=== PATIENT | male | born 1970 ===

== ENCOUNTER 2022-12-10 22:47 | Day surgery (SDC) | payer OTHER, SELFPAY ==
--- NOTE | 2022-12-10 | XR_ITS ---
Patient: HERMELINDO SU Facility:?[facility] Patient ID:?[id number] Site Patient ID:[id number]. Site :?[id number] Study:?XRay-Extremity Right TIB/FIB 2V-12/10/2022 11:26:27 PM Ordering Physician:?UNKNOWN UNKNOWN Final Report: Indication: Fall. Technique: Two views right tibia-fibula. Comparison: Ankle same day. Findings/Impression: Redemonstration of acute complete comminuted fractures of the distal 3rd of the tibia and fibula with lateral angulation, posterior displacement and 30 millimeters retraction of the distal fracture fragments. Associated soft tissue swelling. The medial tibial plateau is depressed, likely secondary to a tibial plateau impaction fracture. Dictated by Munir Sales MD @ 12/10/2022 11:48:00 PM Signed by:?Munir Sales MD @12/10/2022 11:48:00 PM (Electronic Signature)
[2022-12-10 22:52] VITALS: PULSE 71
--- NOTE | 2022-12-10 23:04 | CRLHL7_ITS ---
For Patients: As a result of the Cures Act, medical imaging exams and procedure reports are released immediately into your electronic medical record. You may view this report before your referring provider. If you have questions, please contact your health care provider. Indication: Right ankle pain. Technique: Right ankle 3 views. Comparison: None. FINDINGS/IMPRESSION: Acute complete comminuted fractures of the distal 3rd of the tibia and fibula with lateral angulation of the distal fracture fragments as well as posterior displacement and approximately 30 millimeters retraction of both tibia and fibula distal fracture fragments. Fracture line of the fibula may extend to the fibulotalar joint space. Associated soft tissue swelling. Joint spaces are otherwise maintained. Bony mineralization is age appropriate. Dictated by Munir Sales MD @ 12/10/2022 11:45:28 PM (Electronically Signed)
[2022-12-10 23:06] VITALS: BP 131/71; PULSE 71; RESP 16; TEMP 36.4; O2SAT 100
[2022-12-10] MEDS: fentaNYL 100 MCG/2 ML inj 50 MCG IVP (23:20)
[2022-12-10] MEDS: ONDANSETRON 2 MG/ML inj 4 MG IVP (23:20)
[2022-12-10] MEDS: 0.9 % SODIUM CHLORIDE 1000 ml 1,000 ML IV (23:20)
[2022-12-10 23:30] VITALS: BP 131/71; PULSE 84; RESP 16; O2SAT 100
[2022-12-10] MEDS: MIDAZOLAM HCL 1 MG/ML inj 2 MG IVP (23:30)
[2022-12-11] VITALS (29 sets, daily range): BP systolic 111–147; BP diastolic 72–98; PULSE 54–87; RESP 12–18; TEMP 36.2–36.9; O2SAT 92–100; BMI 25.8
--- NOTE | 2022-12-11 00:08 | ED.LOWEXIN ---
HPI - Extremity Injury (Lower) General Date Seen: 12/10/22 Chief Complaint: Extremity Pain/Injury, Lower Stated Complaint: Broken Right Ankle (skiing) Time Seen by Provider: 12/10/22 22:53 Source: patient and family Mode of arrival: wheelchair Limitations: no limitations History of Present Illness HPI Narrative: Patient is a 52-year-old gentleman who was skiing on bike ill, in twisted and was unable to bear weight on his right leg, just above his ski boot, he thinks he fractured his ankle, he went initially to [facility], but a 6 hour wait in the waiting room, propelled him to come to [facility] for further care. No other history of any other injury, he is on no medications, no allergies, last ate approximately 4 hours ago. He did tell me had a couple beers. Is otherwise healthy, MD complaint: leg injury and ankle injury Onset (ago): hour(s) Injury: Right: ankle Type of Injury: inversion Place: street/outdoors Severity: severe Relieving factors: nothing Exacerbating factors: movement Context: other ( skiing) Associated symptoms: snap/pop sensation and unable to bear weight Other symptoms: none Treatments prior to arrival: splint Related Data Home Medications Medication Instructions Recorded Confirmed No Known Home Medications 12/10/22 12/10/22 Allergies Allergy/AdvReac Type Severity Reaction Status Date / Time No Known Drug Allergies Allergy Verified 12/10/22 23:20 Review of Systems Status of ROS: Reports: 10 or more systems reviewed and unremarkable except as noted in History and below Exam Narrative: Exam Narrative: he has seen and stabilization room 1, he is in no apparent distress, denies any neck or other injury. His pupils are equal round reactive to light, TMs are normal, oropharynx is normal, normal mouth opening, neck extension flexion are all normal, chest is clear heart sounds are normal, no clicks murmurs or gallops, no signs respiratory distress, abdomen is soft, pelvis is stable, no tenderness is noted over his back on his lumbar thoracic or cervical spine. His right leg shows an obvious fracture approximately 6-8 inches above the right ankle, with the free movement, I suspect that is the tib-fib fracture. With the little bit of angulation, DP and posterior tibial pulses normal, he is able to move his toes, there is no sensation loss, there is no open component. Just below his right knee, there is a little bit of an abrasion that he tells me he got from [place] a few days ago. Const: Vital Signs, click to edit/add: Vital Signs - 24 hr 12/10/22 23:06 12/10/22 23:30 Temperature 97.6 F Pulse Rate [Left P ulse Oximeter] 71 Respiratory Rate 16 Blood Pressure [Ri ght Upper Arm] 131/71 Pulse Oximetry 100 100 Oxygen Delivery Me thod Room Air Nasal Cannula Oxygen Flow Rate 2 Documenting provider has reviewed patient's vital signs: yes Course Course Hospital Course: Care was taken to explained to both the patient and his , the tib-fib fracture, I recommend closed reduction, with the procedural sedation, this was done, he was splinted with a posterior splint to his thigh, through to his mid metatarsals. And also use splint around his ankle. Post reduction films show improvement of the previous angulation, and displacement. Post reduction he had normal neurovascular status please see notes. Consultation was done with orthopedic PA, Carla she recommended hospitalization, hospitalist consult, and they would be able to fix this tomorrow With a curry, and plate. Vital Signs Vital signs: Initial Vital Signs Temperature 97.6 F 12/10/22 23:06 Temperature Source Temporal Artery Scan 12/10/22 23:06 Pulse Rate 71 12/10/22 23:06 Respiratory Rate 16 12/10/22 23:06 Blood Pressure 131/71 12/10/22 23:06 Blood Pressure Mean 91 12/10/22 23:06 Blood Pressure Position Supine 12/10/22 23:06 Pulse Oximetry 100 12/10/22 23:06 Oxygen Delivery Method 12/10/22 23:06 Vital Signs Temperature 97.6 F 12/10/22 23:06 Pulse Rate 71 12/10/22 23:06 Respiratory Rate 16 12/10/22 23:06 Blood Pressure 131/71 12/10/22 23:06 Pulse Oximetry 100 12/10/22 23:06 Oxygen Delivery Method 12/10/22 23:06 Temperature 97.6 F 12/10/22 23:06 Pulse Rate 71 12/10/22 23:06 Respiratory Rate 16 12/10/22 23:06 Blood Pressure 131/71 12/10/22 23:06 Pulse Oximetry 100 12/10/22 23:30 Oxygen Delivery Method 12/10/22 23:30 Oxygen Flow Rate 2 12/10/22 23:30 MDM - Extremity Injury (Lower) MDM Narrative Medical decision making narrative: during this evaluation I considered multiple diagnosis including fracture dislocation of the ankle, tib-fib fracture both open and close, ankle injury, Medical Records Attestation: I reviewed the patient's medical records. Lab Data Attestation: I reviewed the patient's lab results. Imaging Data tib-fib : Attestation: I have reviewed the pertinent imaging results. My impression: tib-fib fracture with angulation. Discharge Plan Discharge Clinical Impression: Closed fracture of tibia and fibula Patient Disposition: Admitted As Inpatient Condition: Improved Prescriptions: No Action No Known Home Medications Follow Up/Referrals: Provider,Not a Local [Primary Care Provider] - Procedures Orthopedic Fracture Reduction Fracture #1: Written consent by: patient and health care proxy ( ) Time Out Performed: Yes Side: right Fracture location: tibia Analgesia: procedural sedation Technique: direct manipulation Post Reduction X-rays Demonstrate: acceptable reduction Post-reduction neuro exam: intact Post-reduction vascular exam: intact Splint Applied: Yes Patient Tolerated Procedure: well and no complications Additional Comments: anesthesia was done by LEIGH Purcell
--- NOTE | 2022-12-11 00:14 | CRLHL7_ITS ---
For Patients: As a result of the Cures Act, medical imaging exams and procedure reports are released immediately into your electronic medical record. You may view this report before your referring provider. If you have questions, please contact your health care provider. INDICATION: Status post closed reduction and casting. COMPARISON: Pre reduction films from earlier this evening at 2315 hours TECHNIQUE: AP and lateral views of the right tibia and fibula were obtained using portable technique at 2359 hours. FINDINGS: During the interval, a fiberglass cast has been placed. There is stable appearance of the comminuted, oblique fractures of the distal tibial and fibular shafts. There is stable 15 degrees lateral angulation of the major distal tibial fracture fragment. The previously seen 70 percent posterior displacement and 15 degrees anterior angulation of the major distal fracture fragment is no longer present. There is stable appearance of 100 presents to lateral displacement of the distal fibular fracture fragments, with decrease in lateral angulation of the distal fracture fragment from approximately 15 degrees to less than 5 degrees. There is no sign of any additional fracture elsewhere in the tibia or fibula. The ankle and knee are intact. The soft tissues are normal in appearance without sign of radio-opaque foreign body. IMPRESSION: Slight improvement in alignment of acute, comminuted, oblique fractures of the distal tibial and fibular shafts as described above after closed reduction and casting. Dictated by Cleveland Beck MD @ 12/11/2022 12:50:04 AM (Electronically Signed)
--- NOTE | 2022-12-11 00:19 | W.ANESCHARGE ---
Anesthesia Charges Start Date/Time Anesthesia Start Date: 12/10/22 Anesthesia Start Time: 23:50 Stop Date/Time Anesthesia Stop Date: 12/11/22 Anesthesia Stop Time: 00:06 Summary Emergency: Yes
--- NOTE | 2022-12-11 00:21 | ED.NURSE ---
conscious sedation with anesthesia at bedside with MD desai for splinting. split applied, pt awakens stating pain 1.5/10.
[2022-12-11 00:23] LABS: PCR FLU A Negative PCR FLU A (Negative); PCR FLU B Negative PCR FLU B (Negative)
[2022-12-11 00:25] LABS: SARS PCR* Negative SARS-CoV-2 (Negative)
--- NOTE | 2022-12-11 01:45 | PM.IMCN1 ---
Date of Consult Consult date: 12/11/22 Primary Care Provider: Not a Local Provider Consult Narrative Narrative: Flash Meyer is a 52 year old male [facility] Social History Highest level of school completed/degree received: high school graduate Smoking Status: Never smoker Do you use any of these nicotine containing products: None How often do you have a drink containing alcohol: 2-3 times a week Alcohol type: beer AUDIT-C Alcohol total score: 3 Non-prescribed substance use: denies use Caffeine: Yes service: No Meds Home Medications and Allergies Home Medications Medication Instructions Recorded Confirmed Type No Known Home Medications 12/10/22 12/10/22 History Allergies Allergy/AdvReac Type Severity Reaction Status Date / Time No Known Drug Allergies Allergy Verified 12/10/22 23:20 Exam Const: Vital Signs, click to edit/add: Vital Signs - 24 hr 12/10/22 23:06 12/10/22 23:30 12/10/22 22:52 Temperature 97.6 F Pulse Rate [Left P ulse Oximeter] 71 Pulse Rate [Right Dorsalis Pedis] 71 Respiratory Rate 16 Blood Pressure [Ri ght Upper Arm] 131/71 Pulse Oximetry 100 100 Oxygen Delivery Me thod Room Air Nasal Cannula Oxygen Flow Rate 2 12/10/22 23:30 12/11/22 00:00 Temperature Pulse Rate [Left P ulse Oximeter] 84 71 Pulse Rate [Right Dorsalis Pedis] Respiratory Rate 16 16 Blood Pressure [Ri ght Upper Arm] 131/71 125/92 H Pulse Oximetry 100 100 Oxygen Delivery Me thod Nasal Cannula Nasal Cannula Oxygen Flow Rate 2 2 Assessment and Plan Assessment and plan (1) Closed fracture of tibia and fibula: Status: Acute Plan [facility] Hospitalist CONSULTATION NOTE: Reason for consult: Right tibia and fibula fracture HPI: Patient is a pleasant and healthy 52-year-old gentleman who was skiing and suffered a wreck where he twisted his ankle in her on his boot. He was unable to bear weight on his ankle and so presented to [place] ED after first ER he presented to had a 6-hour wait. In the ER he had radiographs showing displaced right tibia and fibula fracture. ED provider spoke with orthopedic surgery who plans to for surgical repair in the morning. The fracture was reduced and splinted in the ER. Currently patient is rates his pain as a 4 out of 10. He denies any other symptoms. He has not had recent headache or lightheadedness. He is not having chest pain or shortness of breath. He does not have any abdominal pain, nausea, vomiting. He has not had any recent diarrhea. He does not have any fevers or chills for the last 2 days. Patient has had surgery before without any issues with anesthesia. He is healthy and takes no daily medications. He does not smoke cigarettes. He does drink alcohol around 6 beverages a week. He does not use any recreational drugs. We discussed CODE STATUS and he wishes to be full code. Exam (performed via interactive video with assistance of bedside nurse): General: Alert, cooperative, no acute distress HEENT: Pupils reported ERRL, oral mucosa pink and moist without erythema Lungs: Clear to auscultation bilaterally without crackle or wheeze CV: Regular rate and rhythm without loud murmur rub or gallop Abd: Denies tenderness and does not exhibit signs of pain with palpation done by bedside nurse Ext: Right leg is splinted. No pitting edema noted Skin: No rashes, bruises or lesions appreciated on gross visualization of exposed skin Past medical, surgical and social history reviewd in EMR. Assessment and Plan: 1. Right tibia and fibula fracture Patient is a pleasant 52-year-old male admitted for right tibia and fibula fracture following skiing accident. He will proceed to the OR later on this morning for surgical repair with orthopedics. We will keep him n.p.o. until surgery. He will PRNs available for pain and nausea. He does not have any chronic home medications to continue. We will defer any DVT prophylaxis to surgical service. Patient is a full code. Thank you for including Carrington Campbell in the patients care. This service is available for further assistance as requested by your care team by calling [phone].
[2022-12-11] MEDS: MORPHINE 4 MG/ML INJ IVP ×2 (03:28→06:26)
--- NOTE | 2022-12-11 07:32 | PC.NURSE ---
[id number] Pt admitted around 0115 from ER into 282 with right tibia/fibula fracture from falling while skiing. Alert and oriented. Pleasant and cooperative. PRN IV morphine given for right leg pain x2. VSS on room air. Splint and CMS intact to RLE. Remained in bed overnight. NPO for surgery today. ?
[2022-12-11] MEDS: LACTATED RINGERS 1000 ML 500 ML IV (08:42)
--- NOTE | 2022-12-11 09:01 | PM.IMHP1 ---
Hospitalist- H&P: JALIL History of Present Illness Date Seen: 12/11/22 Chief complaint: Broken Ankle (skiing) Narrative: Flash Meyer is a 52 year old male admitted to the hospital with a right tib-fib fracture. He was downhill skiing when he fell and sustained a fracture of both fibula and tibia just above the boot on his right leg. He is admitted to the hospital for surgery and pain control. He reports no other injuries. Reports that he has recently been well. 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 He was found to have an elevated PSA of 6.6. He underwent an MRI which showed a 6 mm nodule in his prostate. Today he was scheduled for a prostate biopsy. Also part of his evaluation at [place] he had a coronary calcium screening with a coronary calcium score of 0. He has hyperlipidemia but he is deemed to be very low risk for heart disease and therefore not on treatment for it. He had some difficulty with pain control during the night but otherwise reports he has been doing well. There is no personal or family history of problems with anesthesia, bleeding or clotting problems Review of Systems Narrative: He reports no other recent illness and no other injuries from his fall. [facility] Medical History (Updated 12/11/22 @ 09:06 by Jaquan Ochoa MD) Elevated PSA History of deviated nasal septum Hyperlipidemia Family History (Updated 12/11/22 @ 09:07 by Jaquan Ochoa MD) Brother Diabetes Father Diabetes Prostate cancer Melanoma Social History (Updated 12/11/22 @ 09:09 by Jaquan Ochoa MD) Narrative: He lives in [facility] with his and 2 sons. 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 He drinks 1-2 drinks daily. Does not smoke. Highest level of school completed/degree received: high school graduate Smoking Status: Never smoker Do you use any of these nicotine containing products: None How often do you have a drink containing alcohol: 2-3 times a week Alcohol type: beer AUDIT-C Alcohol total score: 3 Non-prescribed substance use: denies use Caffeine: Yes service: No Meds Home Medications and Allergies Home Medications Medication Instructions Recorded Confirmed Type No Known Home Medications 12/10/22 12/10/22 History Allergies Allergy/AdvReac Type Severity Reaction Status Date / Time No Known Drug Allergies Allergy Verified 01/25/23 23:20 Exam Narrative: Exam Narrative: He is alert and in no distress. He gives his own history. Eyes normal. Oropharynx normal. Neck is supple without mass or adenopathy. Respirations are clear to auscultation. Cardiovascular: S1, S2, regular rate and rhythm. No murmur gallop or rub. Abdomen: Bowel sounds active. Abdomen is soft without tenderness or mass. This is extremities with intact pulses and sensation and good capillary refill. Right leg is in a splint and right foot has intact sensation, pulses and good capillary refill. Const: Vital Signs, click to edit/add: Vital Signs - 24 hr 12/10/22 23:06 12/10/22 23:30 12/10/22 22:52 Temperature 97.6 F Pulse Rate [Left P ulse Oximeter] 71 Pulse Rate [Pulse Oximeter] Pulse Rate [Right Dorsalis Pedis] 71 Respiratory Rate 16 Blood Pressure [Le ft Arm] Blood Pressure [Ri ght Upper Arm] 131/71 Pulse Oximetry 100 100 Oxygen Delivery Me thod Room Air Nasal Cannula Oxygen Flow Rate 2 12/10/22 23:30 12/11/22 00:00 12/11/22 01:26 Temperature 98.5 F Pulse Rate [Left P ulse Oximeter] 84 71 Pulse Rate [Pulse Oximeter] 71 Pulse Rate [Right Dorsalis Pedis] Respiratory Rate 16 16 18 Blood Pressure [Le ft Arm] 128/76 Blood Pressure [Ri ght Upper Arm] 131/71 125/92 H Pulse Oximetry 100 100 93 Oxygen Delivery Me thod Nasal Cannula Nasal Cannula Room Air Oxygen Flow Rate 2 2 12/11/22 01:26 12/11/22 04:26 Temperature 98.4 F Pulse Rate [Left P ulse Oximeter] Pulse Rate [Pulse Oximeter] 73 Pulse Rate [Right Dorsalis Pedis] Respiratory Rate 18 18 Blood Pressure [Le ft Arm] 134/79 Blood Pressure [Ri ght Upper Arm] Pulse Oximetry 94 Oxygen Delivery Me thod Room Air Room Air Oxygen Flow Rate Documenting provider has reviewed patient's vital signs: yes Assessment and Plan Assessment and plan (1) Closed fracture of tibia and fibula: Status: Acute Plan Admit for orthopedic surgery. Discharge home after recovery from surgery. NPO and IV fluids pending operation. Total time spent today is 50 minutes, 30 minutes in coordination care and discussing with patient other providers ongoing evaluation management of fracture
[2022-12-11] MEDS: LACTATED RINGERS 1000 ML 1,000 ML 125 ML IV ×3 (09:42→18:25)
[2022-12-11] MEDS: ACETAMINOPHEN 325 MG TABLET PO (10:34)
[2022-12-11] MEDS: ONDANSETRON 2 MG/ML inj 4 MG IVP (12:24)
--- NOTE | 2022-12-11 12:54 | SUR.PREOP ---
TIME?OUT:?1227 PT/SARAH KINGSTON RN/DR. MANUEL MDA?VERIFICATION?OF?SURGICAL?SITE RIGHT ANKLE,?PROCEDURE,?AND?CONSENT OBTAINED?PRIOR?TO?INVASIVE?PROCEDURE.
--- NOTE | 2022-12-11 13:05 | W.ANESCHARGE ---
Anesthesia Charges Start Date/Time Anesthesia Start Date: 12/11/22 Anesthesia Start Time: 13:34 Stop Date/Time Anesthesia Stop Date: 12/11/22 Anesthesia Stop Time: 16:27 Summary Emergency: No
--- NOTE | 2022-12-11 13:08 | W.PM.NB ---
Nerve Block Nerve Block Time Seen by Provider: 12:35 Date Seen: 12/11/22 Type of block requested by surgeon for post-operative analgesia: popliteal Side: right Time out performed: Yes Verification of patient name: Yes Verification of date of : Yes Site marking: site marked Name of person performing procedure: Kobe Continuous monitoring Was continuous monitoring of O2 sat, B/P, medical collections representative, recorded every 15 minutes?: Yes Procedure Checklist: sterile prep, needles and gloves Ultrasound guided. Images saved: Yes Medications given in 5ml increments after negative aspiration: Ropivicaine %: 0.5 mL: 20 Needle gauge: 22 Patient tolerated procedure well: Yes Additional comments: Needle noted adjacent to nerve Block Charges Block Charge (with Pro Fee): Sciatic Nerve Use of Ultrasound Machine for Block: Yes- US Guidance/pain block
--- NOTE | 2022-12-11 13:08 | W.PM.NB ---
Nerve Block Nerve Block Time Seen by Provider: 12:35 Date Seen: 12/11/22 Type of block requested by surgeon for post-operative analgesia: adductor canal Side: right Time out performed: Yes Verification of patient name: Yes Verification of date of : Yes Site marking: site marked Name of person performing procedure: Kobe Continuous monitoring Was continuous monitoring of O2 sat, B/P, classroom monitor, recorded every 15 minutes?: Yes Procedure Checklist: sterile prep, needles and gloves Ultrasound guided. Images saved: Yes Medications given in 5ml increments after negative aspiration: Ropivicaine %: 0.5 mL: 20 Needle gauge: 20 Patient tolerated procedure well: Yes Additional comments: Needle noted adjacent to nerve Block Charges Block Charge (with Pro Fee): Femoral Nerve Use of Ultrasound Machine for Block: Yes- US Guidance/pain block
--- NOTE | 2022-12-11 13:16 | CRLHL7_ITS ---
For Patients: As a result of the Cures Act, medical imaging exams and procedure reports are released immediately into your electronic medical record. You may view this report before your referring provider. If you have questions, please contact your health care provider. INDICATION: Right tibial fracture. Open reduction. Internal fixation. TECHNIQUE: Eight spot images of the right tibia and fibula. Fluoroscopic guidance utilized. COMPARISON: December 10, 2022. FINDINGS: Since the prior study the patient has undergone an open reduction internal fixation of the right tibia and fibula. There is a long intramedullary femoral curry with transversely oriented screws involving the right tibia bridging the previously identified comminuted fracture deformity. Adequate alignment across the fracture. There is a long intramedullary femoral curry mid distal right fibula bridging the previously identified displaced complex comminuted fracture. Adequate alignment. 3.10 minutes of fluoroscopy time utilized. IMPRESSION: Adequate alignment status post open reduction internal fixation of the right tibia and fibula. Dictated by Gera Saldana MD @ 12/11/2022 4:33:34 PM (Electronically Signed)
[2022-12-11] MEDS: CEFAZOLIN 2 GM in 0.9 % SODIUM CHLORIDE Mini-bag 100 ML IVPB ×2 (13:40→20:30)
--- NOTE | 2022-12-11 16:21 | PM.ORCN ---
History of Present Illness HPI Date Seen: 12/11/22 Requesting physician: Jaquan Ochoa Chief complaint: Broken Ankle (skiing) Narrative: The patient is a 52-year-old, otherwise healthy male. He fell skiing last evening and sustain a right tibial shaft fracture. He was splinted and admitted for pain management and surgical management. He has never injured this leg or had surgery on the ankle or knee previously. He does not have diabetes, does not smoke cigarettes and is not on blood thinners. He has never had issues with venous thromboembolism. Review of Systems Narrative: The patient denies: Fever, night sweats, shaking chills, nausea, vomiting, diarrhea, chest pain, chest pressure, shortness of breath, no rash, no change in hearing or vision, no issues with bleeding or clotting PFSH PFSH Medical History Elevated PSA History of deviated nasal septum Hyperlipidemia Family History Brother Diabetes Father Diabetes Prostate cancer Melanoma Social History Narrative: He lives in [facility] with his and 2 sons. 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 He drinks 1-2 drinks daily. Does not smoke. Highest level of school completed/degree received: high school graduate Smoking Status: Never smoker Do you use any of these nicotine containing products: None How often do you have a drink containing alcohol: 2-3 times a week Alcohol type: beer AUDIT-C Alcohol total score: 3 Non-prescribed substance use: denies use Caffeine: Yes service: No Meds Home Medications and Allergies Home Medications Medication Instructions Recorded Confirmed Type No Known Home Medications 12/10/22 12/10/22 History Allergies Allergy/AdvReac Type Severity Reaction Status Date / Time No Known Drug Allergies Allergy Verified 12/10/22 23:20 Ortho Exam Narrative Exam Narrative: The patient is examined supine in the hospital bed. He is an a long-leg right lower extremity splint. Sensation over the superficial peroneal, deep peroneal and tibial nerve distributions is normal. He is able to wiggle his toes. The toes are pink and warm. There is no pain with passive motion of his toes. Const Vital Signs, click to edit/add: Vital Signs - 24 hr 12/10/22 23:06 12/10/22 23:30 12/10/22 22:52 Temperature 97.6 F Pulse Rate Pulse Rate [Left Pulse Oximeter] 71 Pulse Rate [Pulse Oximeter] Pulse Rate [Right Dorsalis Pedis] 71 Respiratory Rate 16 Blood Pressure Blood Pressure [Left Arm] Blood Pressure [Right Upper Arm] 131/71 Pulse Oximetry 100 100 Oxygen Delivery Method Room Air Nasal Cannula Oxygen Flow Rate 2 12/10/22 23:30 12/11/22 00:00 12/11/22 01:26 Temperature 98.5 F Pulse Rate Pulse Rate [Left Pulse Oximeter] 84 71 Pulse Rate [Pulse Oximeter] 71 Pulse Rate [Right Dorsalis Pedis] Respiratory Rate 16 16 18 Blood Pressure Blood Pressure [Left Arm] 128/76 Blood Pressure [Right Upper Arm] 131/71 125/92 H Pulse Oximetry 100 100 93 Oxygen Delivery Method Nasal Cannula Nasal Cannula Room Air Oxygen Flow Rate 2 2 12/11/22 01:26 12/11/22 04:26 12/11/22 07:00 Temperature 98.4 F Pulse Rate Pulse Rate [Left Pulse Oximeter] Pulse Rate [Pulse Oximeter] 73 82 Pulse Rate [Right Dorsalis Pedis] Respiratory Rate 18 18 18 Blood Pressure Blood Pressure [Left Arm] 134/79 Blood Pressure [Right Upper Arm] Pulse Oximetry 94 Oxygen Delivery Method Room Air Room Air Oxygen Flow Rate 12/11/22 07:00 12/11/22 12:25 12/11/22 12:28 Temperature 98.4 F Pulse Rate 87 76 Pulse Rate [Left Pulse Oximeter] Pulse Rate [Pulse Oximeter] 73 Pulse Rate [Right Dorsalis Pedis] Respiratory Rate 18 16 16 Blood Pressure 143/96 H 138/88 Blood Pressure [Left Arm] 134/79 Blood Pressure [Right Upper Arm] Pulse Oximetry 94 94 97 Oxygen Delivery Method Room Air Room Air Nasal Cannula Oxygen Flow Rate 2 3 12/11/22 12:30 12/11/22 12:45 12/11/22 10:30 Temperature 98.0 F Pulse Rate 73 73 Pulse Rate [Left Pulse Oximeter] Pulse Rate [Pulse Oximeter] 84 Pulse Rate [Right Dorsalis Pedis] Respiratory Rate 16 16 18 Blood Pressure 128/80 119/76 Blood Pressure [Left Arm] 147/85 H Blood Pressure [Right Upper Arm] Pulse Oximetry 96 97 92 Oxygen Delivery Method Nasal Cannula Nasal Cannula Room Air Oxygen Flow Rate 3 3 0 12/11/22 12:35 Temperature Pulse Rate 80 Pulse Rate [Left Pulse Oximeter] Pulse Rate [Pulse Oximeter] Pulse Rate [Right Dorsalis Pedis] Respiratory Rate 16 Blood Pressure 121/80 Blood Pressure [Left Arm] Blood Pressure [Right Upper Arm] Pulse Oximetry 96 Oxygen Delivery Method Nasal Cannula Oxygen Flow Rate 3 Results Labs Labs: Laboratory Results - last 48 hr 12/10/22 23:37 SARS-CoV-2 (PCR) Negative SARS-CoV-2 Influenza Type A (PCR) Negative PCR FLU A Influenza Type B (PCR) Negative PCR FLU B Diagnostic results Additional Comments: An AP and lateral view of the tibia and three views of the ankle show a spiral oblique fracture of the tibial shaft at the junction of the middle and distal thirds. There is a comminuted fracture of the fibula at the same level. The syndesmosis appears normal. The ankle and knee joints appear normal. Assessment and Plan Assessment and plan (1) Closed fracture of tibia and fibula: Status: Acute Total time spent: Total time spent is greater than 50% in coordination of care (as documented) at patient's floor/unit and/or counseling patient: Plan Assessment: Closed right lower extremity tibia/fibular shaft fractures Plan: The patient has been medically cleared for surgery. Therefore, we will plan to take him to the operating room today.
--- NOTE | 2022-12-11 16:26 | P.ORPRC_ITS ---
Procedure Note Date of procedure: 12/11/22 Procedure: PREOPERATIVE DIAGNOSIS: Right tibial and fibular shaft fractures POSTOPERATIVE DIAGNOSIS: Right tibial and fibular shaft fractures NAME OF OPERATION: IM nailing tibia and fibular fractures SURGEON: Edson De La Vega MD CEMENT CUTTER: Sandra Esteves PA-C, JOY Finney IMPLANTS: Synthes intramedullary nail 10 mm x 345 mm with 2 proximal and 2 distal interlocking screws, Arthrex fibulock 3.0 mm x 180 mm with 2 distal interlocking screws ANESTHESIA: Spinal ESTIMATED BLOOD LOSS: 20 mL COMPLICATIONS: None SPECIMENS: None DRAINS: None PREOPERATIVE ANTIBIOTICS: Ancef 2 g INDICATIONS: The patient is a 52-year-old who fell, while skiing sustaining the above injury. His fracture was reduced, splinted and he was admitted overnight for definitive care. The risks, benefits and expected outcomes were discussed in detail. These included but were not limited to: Infection, bleeding, injury to blood vessel or nerve, venous thromboembolism. All questions were answered to their satisfaction. Use of an senior executive assistant was necessary for patient positioning and safety, soft tissue retraction and closure, dressing application, and transfer of the patient to and from the hospital bed to the fracture table. PROCEDURE: Spinal anesthesia was administered. The patient was placed supine on the operating room table. The extremity was prepped and draped in the usual sterile fashion. The limb was exsanguinated, the pneumatic tourniquet was inf lated to 300 mm of mercury. An incision was made just medial to midline over the anterior aspect of the knee. Subcutaneous dissection sharply taken to the retinaculum. The retinaculum was divided just medial to the patellar tendon. The awl was placed in the entry point of the tibia using the image intensifier in both the AP and lateral views. It was taken into the canal. We then placed the ball-tipped guide curry into the proximal fragment. The fracture was held reduced by the assistants and the guide curry was taken across the fracture site engaging the central portion of the distal fragment. The tourniquet was released. The opening reamer was used. We enlarged in 1.0 mm increments. We stopped at 11.5 mm with good cortical chatter. Length was measured. The IM nail was tapped into place. The reduction remains anatomic. Two static proximal interlocking screws were placed. We then placed the 2 medial to lateral, static distal interlocking screws using a freehand technique. This construct was evaluated with the image intensifier in the AP and lateral views at the knee, fracture site and ankle. Our reduction was felt to be anatomic with well placed implants. A 0 mm end cap was placed on the nail. Given the amount of comminution and displacement of the fibula fracture, we elected to place an intramedullary nail in it as well. Therefore, a guide pin was placed in the center of the distal fragment of the fibula, percutaneously. Its placement was confirmed with the image intensifier in multiple views. A stab incision was made around the guide pin. The opening Reamer was used. The guide pin was removed. The reduction finger was placed in the distal fragment. The central comminution was held reduced, by hand. The isthmus/proximal fragment canal is quite small. However, we were able to advance the reduction finger across the fracture site. The longer, flexible guide pin was placed across the fracture, engaging the canal of the proximal fragment. The opening reamer was placed again. The 3.2 mm reamer was engaged in the proximal fragment. We then removed the flexible guide pin so as not to break it off in the canal. The reamer was taken to the appropriate depth. We placed the Arthrex 3 mm x 180 mm Intramedullary nail. The talons were deployed. We placed 2 screws in the distal fragment. The website optimization strategist was removed, the end cap was placed. This provides a reasonable reduction of the fibula, given the amount of comminution. Implants were imaged in the AP, mortise and lateral views and were felt to be well placed. The talus is nicely reduced under the tibial plafond. Wounds were irrigated with normal saline. The knee incision was closed with a 0 Vicryl in the retinaculum, 2-0 Vicryl in the subcutaneous tissues and 3 0 Monocryl in a subcuticular fashion to close the skin. The proximal interlocking incisions were closed with 2-0 Vicryl and 3-0 Monocryl. Ankle wounds were closed with a 3-0 nylon. Wound closure was done by the senior executive assistant. Soft tissue compartments are soft at the end of the case. The senior executive assistant placed a dry dressing and short leg Andrey Garcia splint. Sponge and needle counts were correct x 2. The patient tolerated the procedure well. There were no apparent complications. They were carefully transferred to the hospital bed and taken to the postanesthesia care unit in satisfactory condition. PLAN: The patient will be mobilized with physical therapy. They will be nonweightbearing on the right lower extremity. Aspirin will be used for DVT prophylaxis. They will be discharged home once medically appropriate. He will follow up in the office in 2 weeks for a wound check and suture removal from the ankle wounds. At that time, he should be placed in a short-leg waterproof, nonweightbearing cast. Physical therapy can be started at 2 weeks postop for his knee. He should remain nonweightbearing for another month (6 weeks total). I will plan to see him at the 6 week postoperative brooke for new x-rays and to consider protected weight-bearing in a Cam walker.
--- NOTE | 2022-12-11 16:34 | W.ANESCHARGE ---
Anesthesia Charges Start Date/Time Anesthesia Start Date: 12/11/22 Anesthesia Start Time: 13:34 Stop Date/Time Anesthesia Stop Date: 12/11/22 Anesthesia Stop Time: 16:27 Summary Emergency: No
[2022-12-11] MEDS: KETOROLAC 30 MG/ML inj IVP ×2 (18:25→23:57)
[2022-12-11] MEDS: ASPIRIN 81 MG TABLET EC PO (20:31)
--- NOTE | 2022-12-11 22:57 | PC.NURSE ---
End of Shift: Patient returned from PACU approx 1710. Pleasant and cooperative. Rating pain in right leg 0-1/10 and denies need for PRN pain medication. Dressing to leg C/D/I, toes warm with good capillary refill, unable to move toes. Elevated on pillows. Tolerating regular diet with no nausea. Up with 2 assist to bathroom and non-weight bearing to right lower extremity, tolerated well. Voided x1.
[2022-12-11] MEDS: SODIUM CHLORIDE 0.9 % (FLUSH) 10 ML SYRINGE 5 ML IVF (23:57)
[2022-12-12 03:00] VITALS: BP 109/72; PULSE 64; RESP 16; TEMP 36.7; O2SAT 94
[2022-12-12] MEDS: CEFAZOLIN 2 GM in 0.9 % SODIUM CHLORIDE Mini-bag 100 ML IVPB (03:24)
[2022-12-12] MEDS: LACTATED RINGERS 1000 ML 1,000 ML 125 ML IV (03:25)
--- NOTE | 2022-12-12 05:43 | PC.NURSE ---
[id number] Pt slept well during night. denies any pain to RLE, unable to wiggle or feel nurse touching toes. cap refills <3 seconds, foot warm and pink, great pedal pulse present. ambulating to br with walker, SBA, NWB to RLE. no N/V, chest pain, headache or sob.
[2022-12-12] MEDS: KETOROLAC 30 MG/ML inj IVP (06:13)
[2022-12-12] MEDS: SODIUM CHLORIDE 0.9 % (FLUSH) 10 ML SYRINGE 5 ML IVF (06:14)
[2022-12-12 07:20] VITALS: BP 125/90; PULSE 66; RESP 16; TEMP 36.8; O2SAT 97
[2022-12-12 07:56] VITALS: PULSE 66; RESP 16
[2022-12-12] MEDS: SENNOSIDES 1 TAB TABLET 2 TAB PO (08:03)
[2022-12-12] MEDS: ASPIRIN 81 MG TABLET EC PO (08:03)
--- NOTE | 2022-12-12 08:46 | PM.ORPN ---
Subjective Subjective Time Seen by Provider: 08:47 Date Seen: 12/12/22 Principal diagnosis: Status post right tib-fib rodding Interval history: Flash is comfortable this morning. He will have physical therapy today, crutch training, discharge to home today. He can wiggle his toes. He has no pain. Ortho Exam Narrative Exam Narrative: Alert and oriented x3. Patient is in no acute distress. Converses without labored breathing. Hearing is grossly intact. Ambulates with a crutches or walker. Examination of the right lower extremity shows the splint is intact. Toes are warm. He can wiggle his toes. Decreased sensation right lower extremity due to block. Const Vital Signs, click to edit/add: Vital Signs - 24 hr 12/11/22 12:25 12/11/22 12:28 12/11/22 12:30 Temperature Pulse Rate 87 76 73 Pulse Rate [Pulse Oximeter] Respiratory Rate 16 16 16 Blood Pressure 143/96 H 138/88 128/80 Blood Pressure [Left Arm] Pulse Oximetry 94 97 96 Oxygen Delivery Method Room Air Nasal Cannula Nasal Cannula Oxygen Flow Rate 3 3 12/11/22 12:45 12/11/22 10:30 12/11/22 12:35 Temperature 98.0 F Pulse Rate 73 80 Pulse Rate [Pulse Oximeter] 84 Respiratory Rate 16 18 16 Blood Pressure 119/76 121/80 Blood Pressure [Left Arm] 147/85 H Pulse Oximetry 97 92 96 Oxygen Delivery Method Nasal Cannula Room Air Nasal Cannula Oxygen Flow Rate 3 0 3 12/11/22 16:26 12/11/22 16:30 12/11/22 16:35 Temperature 97.2 F L Pulse Rate 68 60 70 Pulse Rate [Pulse Oximeter] Respiratory Rate 12 12 14 Blood Pressure 130/98 H 120/87 120/81 Blood Pressure [Left Arm] Pulse Oximetry 95 99 97 Oxygen Delivery Method Room Air Room Air Oxygen Flow Rate 12/11/22 16:40 12/11/22 16:45 12/11/22 16:50 Temperature Pulse Rate 67 59 L 54 L Pulse Rate [Pulse Oximeter] Respiratory Rate 16 16 16 Blood Pressure 124/80 126/81 116/90 H Blood Pressure [Left Arm] Pulse Oximetry 98 98 100 Oxygen Delivery Method Room Air Oxygen Flow Rate 12/11/22 16:55 12/11/22 17:10 12/11/22 17:30 Temperature 97.2 F L 97.5 F L Pulse Rate 64 67 Pulse Rate [Pulse Oximeter] 61 Respiratory Rate 16 16 16 Blood Pressure 121/93 H Blood Pressure [Left Arm] 134/83 122/96 H Pulse Oximetry 99 95 Oxygen Delivery Method Room Air Room Air Room Air Oxygen Flow Rate 3 12/11/22 17:45 12/11/22 18:00 12/11/22 18:15 Temperature Pulse Rate Pulse Rate [Pulse Oximeter] 61 64 62 Respiratory Rate 16 16 16 Blood Pressure Blood Pressure [Left Arm] 126/88 123/89 126/84 Pulse Oximetry 96 97 95 Oxygen Delivery Method Room Air Room Air Room Air Oxygen Flow Rate 12/11/22 18:45 12/11/22 19:15 12/11/22 20:15 Temperature 98.5 F Pulse Rate Pulse Rate [Pulse Oximeter] 67 64 70 Respiratory Rate 16 16 16 Blood Pressure Blood Pressure [Left Arm] 113/73 111/74 116/78 Pulse Oximetry 95 94 94 Oxygen Delivery Method Room Air Room Air Room Air Oxygen Flow Rate 12/11/22 21:15 12/11/22 22:15 12/11/22 23:15 Temperature 98.0 F Pulse Rate Pulse Rate [Pulse Oximeter] 82 75 78 Respiratory Rate 16 16 16 Blood Pressure Blood Pressure [Left Arm] 144/88 H 123/72 118/79 Pulse Oximetry 96 93 94 Oxygen Delivery Method Room Air Room Air Room Air Oxygen Flow Rate 12/11/22 23:00 12/12/22 03:00 12/12/22 07:56 Temperature 98.0 F Pulse Rate Pulse Rate [Pulse Oximeter] 64 66 Respiratory Rate 16 16 16 Blood Pressure Blood Pressure [Left Arm] 109/72 Pulse Oximetry 94 Oxygen Delivery Method Room Air Oxygen Flow Rate 0 12/12/22 07:20 Temperature 98.2 F Pulse Rate Pulse Rate [Pulse Oximeter] 66 Respiratory Rate 16 Blood Pressure Blood Pressure [Left Arm] 125/90 H Pulse Oximetry 97 Oxygen Delivery Method Room Air Oxygen Flow Rate Assessment and Plan Assessment and plan (1) Closed fracture of tibia and fibula: Problem details: Tibia and fibula rodding 12/11/2022 Status: Acute Assessment and Plan: Plan for discharge is today to home if they meet discharge criteria. DVT prophylaxis includes aspirin 81 mg twice daily x1 month, frequent ambulation. Nonweightbearing right lower extremity phone Orthopedics with any questions or concerns Return to clinic in 2 weeks for a wound check Return to clinic in [address] De La Vega Minimize narcotic use. Wean off and discontinue soon as possible. Use crutches or walker. Ice and elevate the operative extremity. No restriction on ice.
[2022-12-12 11:05] VITALS: BP 121/93; PULSE 67; RESP 16; TEMP 36.8
--- NOTE | 2022-12-12 12:21 | PC.NURSE ---
Discharge. pt has been very pleasant. no pain in right leg he does have tingling. he can feel and wiggle his toes. cms is WNL. Dressing to leg C/D/I, toes warm with good capillary refill. Elevated on pillows. active ice on. Tolerating regular diet with no nausea. he is drinking, voiding. he is non weight bearing. Up with 1 assist to bathroom with a walker and non-weight bearing to right lower extremity, tolerated well. SL was d/c intact./ went over discharge packet. went over medications, appointments, education and instructions. he went over and signed personal belonging sheet. all belongings and paperwork sent packet up. he got a w/c ride to his car.
--- NOTE | 2022-12-12 17:43 | P.DS_ITS ---
DS: Providers Provider Date Seen: 12/12/22 Primary care physician: Not a Local Provider Attending Physician on discharge: Edson De La Vega MD Date of Discharge: 12/12/22 DS: Diagnosis Discharge Diagnosis (1) Closed fracture of tibia and fibula: Status: Acute Problem details: Tibia and fibula rodding 12/11/2022 DS: Summary Hospital Course Hospital Course: 52-year-old male admitted to the hospital with a right leg injury after a fall while downhill skiing. Evaluation showed a tib-fib fracture. Was taken to the operating room by Dr. De La Vega where he underwent ORIF with IM nailing of the tibia and fibula. Postoperatively he has done fairly well. Pain control is improved. He has worked with therapy for crutch walking. Status at Discharge Cognitive/behavioral status at discharge: Baseline Functional status at discharge: uses cane/walker (Crutches) Overall status at discharge: patient is progressing back to baseline Time Spent with Patient Time attestation: Total time spent providing and/or coordinating discharge services: Time spent: Less than 30 minutes Exam Narrative: Exam Narrative: He is alert and appears in no distress. Eating normally. Pain is well controlled. Breathing is unlabored. Const: Vital Signs, click to edit/add: Vital Signs - 24 hr 12/11/22 17:45 12/11/22 18:00 12/11/22 18:15 Temperature Pulse Rate Pulse Rate [Pulse Oximeter] 61 64 62 Respiratory Rate 16 16 16 Blood Pressure Blood Pressure [Le ft Arm] 126/88 123/89 126/84 Pulse Oximetry 96 97 95 Oxygen Delivery Me thod Room Air Room Air Room Air Oxygen Flow Rate 12/11/22 18:45 12/11/22 19:15 12/11/22 20:15 Temperature 98.5 F Pulse Rate Pulse Rate [Pulse Oximeter] 67 64 70 Respiratory Rate 16 16 16 Blood Pressure Blood Pressure [Le ft Arm] 113/73 111/74 116/78 Pulse Oximetry 95 94 94 Oxygen Delivery Me thod Room Air Room Air Room Air Oxygen Flow Rate 12/11/22 21:15 12/11/22 22:15 12/11/22 23:15 Temperature 98.0 F Pulse Rate Pulse Rate [Pulse Oximeter] 82 75 78 Respiratory Rate 16 16 16 Blood Pressure Blood Pressure [Le ft Arm] 144/88 H 123/72 118/79 Pulse Oximetry 96 93 94 Oxygen Delivery Me thod Room Air Room Air Room Air Oxygen Flow Rate 12/11/22 23:00 12/12/22 03:00 12/12/22 07:56 Temperature 98.0 F Pulse Rate Pulse Rate [Pulse Oximeter] 64 66 Respiratory Rate 16 16 16 Blood Pressure Blood Pressure [Le ft Arm] 109/72 Pulse Oximetry 94 Oxygen Delivery Me thod Room Air Oxygen Flow Rate 0 12/12/22 07:20 12/12/22 11:05 Temperature 98.2 F 98.2 F Pulse Rate 67 Pulse Rate [Pulse Oximeter] 66 Respiratory Rate 16 16 Blood Pressure 121/93 H Blood Pressure [Le ft Arm] 125/90 H Pulse Oximetry 97 Oxygen Delivery Me thod Room Air Oxygen Flow Rate Documenting provider has reviewed patient's vital signs: yes Discharge Plan Discharge Disposition: Home, Self-Care Discharging Surgeon: Edson De La Vega Follow-Up Appointment: Two weeks, PA visit, and [address] De La Vega Prescriptions: New aspirin [Aspirin Childrens] 81 mg tablet,chewable 81 mg PO BID 30 Days Qty: 60 0RF sennosides [Senna Lax] 8.6 mg Tablet 17.2 mg PO BID PRN (Reason: constipation) Qty: 100 0RF oxycodone 5 mg Tablet 2.5 - 5 mg PO Q4-6H MDD 6 tabs per day PRN (Reason: Pain) Qty: 42 0RF Rx Instructions: Minimize. Discontinue as soon as possible acetaminophen 500 mg capsule 500 - 1,000 mg PO Q6H MDD 4000mg per day PRN (Reason: pain) Qty: 100 0RF Activity Detail: Keep dressing on. Ice and elevate operative extremity without restriction. Aspirin 81 mg twice daily for 1 month for DVT prophylaxis. Nonweightbearing right lower extremity. Move about every hour throughout the day. Do not drive. Do not drink alcohol while taking narcotic pain medication. May drive when safe to do so and have full function of the extremities, this may take 6 weeks or more. Notify Orthopedics with any questions or concerns. ([phone]) Discharge Diet: Regular Patient Instructions: Acetaminophen (By mouth), Aspirin (By mouth), Oxycodone, Rapid Release (By mouth), Senna (By mouth), Closed Reduction Internal Fixation of Leg Fracture in Adults (DC) Additional Instructions: Return to clinic in 2 weeks, ANGEL LUIS visit, wound check/suture removal/ casting. Forms: Work/School Release Follow-up: Juliana Zavala PA-C [Physician Shipper/Receiver] - 12/25/22 1:40 pm (At the [facility] Call if you have any questions.) Provider,Not a Local [Primary Care Provider] - Discharge Orders: Discharge Order (Routine); Ordered 12/12/22 Ordered By: Carla Curry Consulting provider completed their portion of the discharge: Yes
== END 2022-12-12 11:31 | disposition home or self-care (01) ==
LOC: ED 12-11 00:35 → MEDSURG 12-11 02:22 → SS 12-11 10:42 → MEDSURG 12-11 10:44
PROVIDERS: Emergency Provider Family Medicine; Visit Provider Orthopaedic Surgery
PROC: (CPT 27759; principal; 2022-12-11 13:45)
DX: S82.241A Displaced spiral fracture of shaft of right tibia, initial encounter for closed fracture (principal); S82.491A Other fracture of shaft of right fibula, initial encounter for closed fracture; V00.321A Fall from snow-skis, initial encounter; Y93.23 Activity, snow (alpine) (downhill) skiing, snowboarding, sledding, tobogganing and snow tubing; Y92.39 Other specified sports and athletic area as the place of occurrence of the external cause; R97.20 Elevated prostate specific antigen [PSA]; N40.2 Nodular prostate without lower urinary tract symptoms; E78.5 Hyperlipidemia, unspecified; G89.18 Other acute postprocedural pain; M25.571 Pain in right ankle and joints of right foot
CPT/HCPCS: 27759; 01392; 01462; 27752; 64445; 64447; 73590; 73610; 76000; 76942; 87631; 97116; 97162; 97165; 99140; 99284; 99291; A4580; A9270; C1713; J0690; J1885; J2250; J2270; J2405; J2704; J2795; J3010; J3490; J7030; J7120

== ENCOUNTER 2023-03-18 15:30 | Outpatient (RCR) | payer OTHER, SELFPAY | END 2023-07-16 23:59 | disposition home or self-care (01) | PROVIDERS: PCP Physician Assistant Surgical; Visit Provider Physician Assistant Surgical | DX: S82.209A Unspecified fracture of shaft of unspecified tibia, initial encounter for closed fracture (principal); S82.409A Unspecified fracture of shaft of unspecified fibula, initial encounter for closed fracture; Z51.89 Encounter for other specified aftercare | CPT/HCPCS: 97110; 97140; 97161 ==